=== PATIENT | female | born 1995 | race Two or more races ===

== ENCOUNTER 2023-08-30 23:32 | Emergency (ER) | payer MEDICAID, OTHER ==
[~2023-08-30] VITALS: Ht 157.5 cm; Wt 69.0 kg
[2023-08-31] MEDS ORDERED: cloNIDine HCL 0.1 MG TAB PO ONE (00:45)
[2023-08-31] MEDS ORDERED: ACETAMINOPHEN 500 MG TAB PO ONE (00:45)
[2023-08-31 01:28] LABS: Basophils # (auto) 0 10 ^3/uL (0-0.2); Eosinophils # (auto) 0.1 10 ^3/uL (0-0.8); Lymphocytes % (auto) 30.4 % (10.0-50.0); Mean Corpuscular Volume 75.5 fL (80.0-100.0)
[2023-08-31 01:30] LABS: Basophils % (auto) 0.3 % (0.0-2.0); Eosinophils % (auto) 1.3 % (0.0-7.0); Hematocrit 36.9 % (36.0-46.0); Hemoglobin 11.8 g/dL (12.2-16.2); Lymphocytes # (auto) 2.9 10 ^3/uL (0.4-5.4); Mean Corpuscular Hemoglobin 24.2 pg (28.0-32.0); Monocytes % (auto) 10.5 % (0.0-12.0); Neutrophils # (auto) 5.4 10 ^3/uL (1.6-8.6); Neutrophils % (auto) 57.5 % (37.0-80.0); Red Blood Cells 4.89 10^6/uL (4.0-5.20); Red Cell Distribution Width 19.4 % (11.8-14.3); White Blood Cell 9.5 10^3/uL (4.4-10.8)
[2023-08-31 01:38] LABS: Chloride 107 mmol/L (98-107); Potassium 4.1 mmol/L (3.5-5.1); Sodium 140 mmol/L (136-145)
[2023-08-31 01:39] LABS: Anion Gap 9 (5-15); Carbon Dioxide 24 mmol/L (20-30)
[2023-08-31 01:40] LABS: Calcium 9.6 mg/dL (8.7-10.4)
[2023-08-31 01:44] LABS: Glucose 98 mg/dL (74-106)
[2023-08-31 01:45] LABS: BUN/Creatinine Ratio 15.2 (10.0-20.0); Blood Urea Nitrogen 10 mg/dL (9-23)
[2023-08-31] MEDS ORDERED: CLON0.2T PO (02:09)
[2023-08-31] MEDS ORDERED: ACET500T58 PO (02:09)
[2023-08-31] MEDS ORDERED: LORazepam 0.5 MG TAB PO ONE (02:30)
[2023-08-31 05:41] VITALS: BP 143/75; TEMP 97.5; O2SAT 82
[2023-08-31 05:44] VITALS: PULSE 82; RESP 18
== END 2023-08-31 05:54 | disposition home or self-care (01) ==
LOC: ER 23:32
DX: I10 Essential (primary) hypertension (principal); R51.9 Headache, unspecified; R07.89 Other chest pain
CPT/HCPCS: 36415; 70450; 71045; 80048; 84484; 85025; 85379

== ENCOUNTER 2024-09-11 20:32 | Emergency (ER) | payer MEDICAID ==
[~2024-09-11] VITALS: Ht 152.4 cm; Wt 77.2 kg
[~2024-09-11 20:32] MED LIST: ACET500T58 PO; CLON0.2T PO
--- NOTE | 2024-09-11 20:51 | ED.PDOC ---
DONOR SERVICES COORDINATOR HPI Comments 29 year old female came to ER due to vaginal bleeding. Patient is a about 11 weeks . States she has been having vaginal bleeding for the past 5 days associated with mild abdominal discomfort. Was advised by his OB to come to the ER for further evaluation and management. Chief Complaint: Vaginal Bleeding Time Seen by MD: 20:51 Reviewed Notes: Nurses Notes Allergies: Coded Allergies: NO KNOWN ALLERGIES (Unverified , 08/31/23) Home Meds Active Scripts Acetaminophen (Acetaminophen) 500 Mg Tab, 500 MG PO Q4HP PRN, #20 TAB Prov:ELIDA ANAYA PAC 08/31/23 Clonidine Hydrochloride (Clonidine Hcl) 0.2 Mg Tab, 1 TAB PO BID, #20 TAB 0 Refills Prov:ELIDA ANAYA PAC 08/31/23 Information Source: Patient Mode of Arrival: Ambulatory Timing: Days Severity: Mild Vaginal Discharge: None Vaginal Lesions: None Bleeding Quality: Bright Red Onset Of Mass/Bleeding: Spontaneous Sexual Activity: Last Consensual [place]: Unknown History of: Current Associated Signs and Symptoms: Vaginal Bleeding Past Medical History PAST MEDICAL HISTORY: HTN, Denies Surgical History: Denies all surgeries GRIEVANCE AND APPEALS COORDINATOR History: No Pertinent GRIEVANCE AND APPEALS COORDINATOR History 5 Para 4 LMP June 07, 2024 Family History Family History: Reviewed,noncontributory to illness, No family hx of Cancer, No family hx of DM, No family hx of Heart lauryn, No family hx of HTN, No family hx ofKidney lauryn, No family hx of Liver lauryn, No family hx of Lung lauryn, No family hx of Stroke Social History Smoker: Non-Smoker Alcohol: Denies ETOH Use Drugs: Denies Drug Use Lives In: Home Constitutional: denies: chills, diaphoresis, fatigue, fever, malaise, sweats, weakness, others EENTM: denies: blurred vision, double vision, ear bleeding, ear discharge, ear drainage, ear pain, ear ringing, eye pain, eye redness, hearing loss, mouth pain, mouth swelling, nasal discharge, nose bleeding, nose congestion, nose pain, photophobia, tearing, throat pain, throat swelling, voice changes, others Respiratory: denies: cough, hemoptysis, orthopnea, SOB at rest, shortness of breath, SOB with excertion, stridor, wheezing, others Cardiovascular: denies: chest pain, dizzy spells, diaphoresis, Dyspnea on exertion, edema, irregular heart beat, left arm pain, lightheadedness, palpitations, PND, syncope, others Gastrointestinal: reports: abdominal pain; denies: abdomen distended, blood streaked bowels, constipated, diarrhea, dysphagia, difficulty swallowing, hematemesis, melena, nausea, poor appetite, poor fluid intake, rectal bleeding, rectal pain, vomiting, others Genitourinary: reports: abnormal vagina bleeding; denies: burning, dyspareunia, dysuria, flank pain, frequency, hematuria, incontinence, pain, , vagina discharge, urgency, others Neurological: denies: dizziness, fainting, headache, left sided numbness, left sided weakness, numbness, paresthesia, pre-existing deficit, right sided numbness, right sided weakness, seizure, speech problems, tingling, tremors, weakness, others Musculoskeletal: denies: back pain, gout, joint pain, joint swelling, muscle pain, muscle stiffness, neck pain, others Integumetry: denies: bruises, change in color, change in hair/nails, dryness, laceration, lesions, lumps, rash, wounds, others Allergic/Immunocompromised: denies: Difficulty Healing, Frequent Infections, Hives, Itching, others Hematologic/Lymphatic: denies: anemia, blood clots, easy bleeding, easy bruising, swollen glands, others Endocrine: denies: excessive hunger, excessive sweating, excessive thirst, excessive urination, flushing, intolerance to cold, intolerance to heat, unexplained weight gain, unexplained weight loss, others Psychiatric: denies: anxiety, bipolar disorder, depression, hopeless, panic disorder, schizophrenia, sleepless, suicidal, others Physical Exam General Appearance: No Apparent Distress, Normal HEENT: Normal ENT Inspection, Pharynx Normal, TMs Normal Neck: Full Range of Motion, Non-Tender, Normal, Normal Inspection Respiratory: Chest Non-Tender, Lungs Clear, No Accessory Muscle Use, No Respiratory Distress, Normal Breath Sounds Cardiovascular: No Edema, No JVD, No Murmur, No Gallop, Normal Peripheral Pulses, Regular Rate/Rhythm Breast Exam: Deferred Gastrointestinal: No Organomegaly, Non Tender, No Pulsatile Mass, Normal Bowel Sounds, Soft Genitalia: Deferred Pelvic: Deferred Rectal: Deferred Extremities: No calf tenderness, Normal capillary refill, Normal inspection, Normal range of motion, Non-tender, No pedal edema Musculoskeletal : Apperance: Normal Neurologic: Alert, screen print operator II-XII nml as Tested, No Motor Deficits, Normal Affect, Normal Mood, No Sensory Deficits Cerebellar Function: Normal Reflexes: Normal Skin: Dry, Normal Color, Warm Lymphatic: No Adenopathy Was a procedure done? Was a procedure done?: No Differential Diagnosis (GRIEVANCE AND APPEALS COORDINATOR) Vaginal Bleeding: - Inevitable, - Missed, - Threatened, Blood Loss Anemia, Placenta Previa, UTI X-Ray, Labs, Meds, VS Vital Signs Date Time Temp Pulse Resp B/P (MAP) Pulse Ox O2 Delivery O2 Flow Rate FiO2 09/11/24 20:43 98.2 68 17 150/84 (106) 96 Lab Test 09/11/24 20:54 09/11/24 20:46 Range/Units White Blood Count 8.7 4.4-10.8 10^3/uL Red Blood Count 4.95 4.0-5.20 10^6/uL Hemoglobin 12.9 12.2-16.2 g/dL Hematocrit 38.6 36.0-46.0 % Mean Corpuscular Volume 78.1 L 80.0-100.0 fL Mean Corpuscular Hemoglobin 26.1 L 28.0-32.0 pg Mean Corpuscular Hemoglobin Concent 33.5 32.0-36.0 g/dL Red Cell Distribution Width 18.3 H 11.8-14.3 % Platelet Count 333 140-450 10^3/uL Mean Platelet Volume 8.3 6.9-10.8 fL Neutrophils (%) (Auto) 55.8 37.0-80.0 % Lymphocytes (%) (Auto) 33.6 10.0-50.0 % Monocytes (%) (Auto) 8.5 0.0-12.0 % Eosinophils (%) (Auto) 1.8 0.0-7.0 % Basophils (%) (Auto) 0.3 0.0-2.0 % Neutrophils # (Auto) 4.9 1.6-8.6 10 ^3/uL Lymphocytes # (Auto) 2.9 0.4-5.4 10 ^3/uL Monocytes # (Auto) 0.7 0-1.3 10 ^3/uL Eosinophils # (Auto) 0.2 0-0.8 10 ^3/uL Basophils # (Auto) 0 0-0.2 10 ^3/uL Nucleated Red Blood Cells 0.5 % Sodium Level 136 136-145 mmol/L Potassium Level 3.8 3.5-5.1 mmol/L Chloride Level 104 98-107 mmol/L Carbon Dioxide Level 23 20-31 mmol/L Anion Gap 9 5-15 Blood Urea Nitrogen 10 9-23 mg/dL Creatinine 0.71 0.550-1.02 mg/dL Glomerular Filtration Rate Calc 118 >90 mL/min BUN/Creatinine Ratio 14.1 10.0-20.0 Serum Glucose 96 74-106 mg/dL Calcium Level 10.2 8.7-10.4 mg/dL Beta HCG, Quantitative 68384.1 H 1.5-4.2 mIU/mL Urine Color Colorless Yellow Urine Clarity Clear Clear Urine pH 6.5 5.0-9.0 Urine Specific [place] 1.012 1.001-1.035 Urine Protein Negative Negative Urine Ketones Negative Negative Urine Blood Negative Negative /uL Urine Nitrite Negative Negative Urine Bilirubin Negative Negative Urine Urobilinogen Normal Negative mg/dL Urine Leukocyte Esterase Negative Negative /uL Urine RBC <1 0 - 4 /hpf Urine Microscopic WBC 3 0-5 /HPF Urine Squamous Epithelial Cells Few <5 /hpf Urine Bacteria None seen None Seen /hpf Urine Yeast (Budding) Occasional None Seen /hpf Urine Glucose Normal Normal mg/dL Time of 1ST Reevaluation: 20:47 Reevaluation 1ST: Unchanged Patient Education/Counseling: Diagnosis, Treatment Family Education/Counseling: No Family Present Departure 1 Departure Time of Disposition: 23:38 (Patient with a threatened miscarriage. No pole this has a well. We will discharge patient home with outpatient follow up) Impression: Primary Impression: Threatened miscarriage Disposition: 01 HOME / SELF CARE / HOMELESS Condition: Stable Referrals: LUKE SRIVASTAVA DO Additional Instructions: You have a threatened miscarriage. Your beta hcg level today was 14000. Your ultrasound showed an intrauterine but we could not detect a heartbeat today. You should follow up with OBGYN within three days to recheck your blood work and ultrasound. If your symptoms worsen or you have any other concerns then please return to the ER. Discharged With: Self Critical Care Note Critical Care Time?: No Stability Stability form required: No Heart Score Heart Score: Heart Score Response (Comments) Value History N/A 0 EKG N/A 0 Age N/A 0 Risk Factors N/A 0 Troponin N/A 0 Total 0 I personally scribed for HUMBERTO LONG MD ([email or web address]) on 09/11/24 at 20:51. Electronically submitted by Carl Gomez ([facility]). HUMBERTO LONG MD Sep 11, 2024 20:51
[2024-09-11 21:03] LABS: Urine Bacteria None Seen /hpf (None Seen)
[2024-09-11 21:14] LABS: Chloride 104 mmol/L (98-107); Potassium 3.8 mmol/L (3.5-5.1)
[2024-09-11 21:15] LABS: Anion Gap 9 (5-15); Basophils # (auto) 0 10 ^3/uL (0-0.2); Calcium 10.2 mg/dL (8.7-10.4); Carbon Dioxide 23 mmol/L (20-31); Hematocrit 38.6 % (36.0-46.0); Nucleated Red Blood Cells % 0.5 %; Red Cell Distribution Width 18.3 % (11.8-14.3)
[2024-09-11 21:17] LABS: Basophils % (auto) 0.3 % (0.0-2.0); Eosinophils # (auto) 0.2 10 ^3/uL (0-0.8); Eosinophils % (auto) 1.8 % (0.0-7.0); Hemoglobin 12.9 g/dL (12.2-16.2); Lymphocytes # (auto) 2.9 10 ^3/uL (0.4-5.4); Lymphocytes % (auto) 33.6 % (10.0-50.0); Mean Corpuscular Hemoglobin 26.1 pg (28.0-32.0); Mean Corpuscular Hgb Conc. 33.5 g/dL (32.0-36.0); Mean Corpuscular Volume 78.1 fL (80.0-100.0); Monocytes # (auto) 0.7 10 ^3/uL (0-1.3); Monocytes % (auto) 8.5 % (0.0-12.0); Neutrophils # (auto) 4.9 10 ^3/uL (1.6-8.6); Neutrophils % (auto) 55.8 % (37.0-80.0); Platelet Count (auto) 333 10^3/uL (140-450); Red Blood Cells 4.95 10^6/uL (4.0-5.20); White Blood Cell 8.7 10^3/uL (4.4-10.8)
[2024-09-11 21:20] LABS: BUN/Creatinine Ratio 14.1 (10.0-20.0); Blood Urea Nitrogen 10 mg/dL (9-23); Glucose 96 mg/dL (74-106)
--- NOTE | 2024-09-11 21:41 | DVH ---
OB EVALUATION, LESS THAN 14 WEEKS CLINICAL HISTORY: abdominal pain and vaginal bleeding COMPARISON: None TECHNIQUE: Grayscale, color-flow Doppler, and spectral Doppler ultrasound of the pelvis is performed by transabdominal and transvaginal technique. FINDINGS: The uterus measures 12.3 x 8.7 x 6.9 cm. Intrauterine gestational sac and possible pole identified. Mean gestational sac diameter 3 cm. Correll-rump length 0.7 cm. No discernible heart rate at this time. Average ultrasound age 7 week s 2 days. Yolk sac is not definitively visualized. Curvilinear hypoechoic focus adjacent to the gestational sac measuring approximately 2.4 cm in length . Ovaries are not visualized. No significant free fluid in the cul-de-sac. IMPRESSION: Intrauterine gestational sac with presumed pole. No discernible heart rate identified. Suspected subchorionic hematoma. Differential diagnosis in the setting includes very early , incomplete miscarriage/ failure as well as ectopic gestation. Recommend short-term interval follow-up as well as correlation with serial beta HCG testing.
[2024-09-11 21:46] LABS: Sodium 136 mmol/L (136-145)
[2024-09-11 21:46] LABS: Urine Blood Negative /uL (Negative); Urine Budding Yeast OCCASIONAL /hpf (None Seen); Urine Clarity Clear (Clear); Urine Color Colorless (Yellow); Urine Protein, UAD Negative (Negative); Urine Specific Gravity 1.012 (1.001-1.035); Urine Squamous Epithelial Cell FEW /hpf (<5); Urine Urobilinogen Normal (Negative); Urine WBC 3 /HPF (0-5); Urine pH 6.5 (5.0-9.0)
[2024-09-12 00:16] VITALS: BP 139/76; PULSE 58; RESP 16; TEMP 98.6; O2SAT 97
== END 2024-09-12 00:32 | disposition home or self-care (01) ==
LOC: ER 20:32
DX: O20.0 Threatened abortion (principal); Z3A.11 11 weeks gestation of pregnancy; Z79.899 Other long term (current) drug therapy
CPT/HCPCS: 36415; 76801; 76817; 80048; 81001; 84702; 85025; 86900; 86901